=== PATIENT | female | born 1990 | race Caucasian/White ===

== ENCOUNTER 2017-02-09 04:00 | Observation (INO) ==
--- OUTSIDE RECORDS SUMMARY | 2017-02-09 04:23 | External Medical Summary | Continuity of Care Document ---
:1990 Author Organization [facility] Address [address] [place], [place] [id number] Phone Care Team Providers Name Role Phone Antwan Mustafa MD Unavailable Unavailable Allergies, Adverse Reactions, Alerts Substance Reaction Severity Status No Known Drug Allergies Unknown Active Medications Medication Instructions Dosage Effective Dates Status Comments (start - stop) ibuprofen 800 mg Tab take 1 tablet (800MG) - Active by ORAL route every 8 hrs PRN cramping or pain. 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 Procedures Procedure Date Preventive checkup, est,18-39 yrs Assay thyroid stimulating hormone Venpnctr fngr/heel/ear stick routne Results Test Name Date and Time Measure Units Reference Range Abnormal Flag Comments Panel Description: TSH W/REFLEX TO FT4 TSH W/REFLEX TO 14:30:00 1.26 mIU/L N Reference Range FT4 > or=20 Years 0.40-4.50 Ranges First trimester 0.26-2.66 Second trimester 0.55-2.73 Third trimester 0.43-2.91REPORT COMMENT:FASTING:NOTest performed at [facility] [facility] [id number] [place] [id number]: SCOTT KENNEDY DO,MPH Advance Directives Directive Yes / No Effective Date File Name Unknown Encounters Encounter Practice Location Reason(s) Diagnoses Date Provider Care Team Description For Visit [facility] [place] Nonscarring hair Feb- Kisha Referring checkup, In Womens established loss, 8-201 Qi. Provider: est,18-39 Health PA, patient well unspecifiedEncntr 6 [address] y[address] woman exam for litigation paralegal exam Nelson Pappas, 1522, (chief (general) Center [address] [place] [address], complaint) (routine) w , [facility], abnormal findings [address], [place] , [place], [facility] 120, [place], tel:[phone], , [place]. [id number]. tel: tel:[phone] Rebeka Steinberg Kisha Referring In Womens 6-201 Qi. Provider: [facility], 4 700 [facility] Medical Gaurav Pappas, 1522, Center [facility] [address] Johanna, [facility], 120, [place] [id number], [place] [facility] 120, [place], [place], tel:[phone], , [place]. [id number]. tel: tel:[phone] Rebeka Steinberg Mar- Narendra In Womens 2-200 Ban. [facility], [address], [place] [address] Johanna, [facility], 120, [id number], [place], [facility], tel:[phone] , [place]. tel: [phone] Rebeka Steinberg Gaurav In Womens 2-200 Key. [facility], [address], [place] [address] Johanna, [facility], 120, [id number], [place], [facility], tel:[phone] , . tel:[phone] Family History Family Member Diagnosis Age At Onset Father Depression Mother Hypertension Father Mental Disorder Mother Depression Immunizations Vaccine Date Status Comments Unknown Payers Payer name Insurance type Covered libertarian ID Authorization(s) BC[facility] [id number] BCBS Out Of State Social History Type Description Quantity Date Captured Alcohol Use Details Caffeine Use Details coffee 1cup per day Tobacco Use Status Moderate cigarette smoker (10-19 cigs/day) Smoking Status Current every day smoker Smoking Tobacco Use Cigarette: No Details Available Cigarette: 0.5 per day Details Vital Signs Date / Height Weight BMI Pulse Blood Temperature Respiratory Body Head BMI Time: Rate Pressure Rate Surface Circumference percentile Area 63.75 152.20 26.3 75 127/86 / in lbs 3 /min mm[Hg] 13:40: kg/m 00 eter (2) Chief Complaint And Reason For Visit Most recent encounter only, dated '03/13/2016 14:15'. an established patient well woman exam (chief complaint). Description: Periods regular. Less cramping since she started using Diva cups. Condoms for BC. Not interested in other BC. Got with 1st child with Paragard. Does have occ LLQ pain- usually sharp. Can last just a few seconds or off and on all day. Has had for several years. Had normal sono in 2013. Doesn't like to take Ibuprofen or Tylenol. Bowels WNL. Occ feels bloated. Does feel like her hair is thinning. Feels vaginal discharge is NL- just changes with time of cycle. Smoker 5-10 cigarettes a day. Interested in quitting sometime in the future. Still deals with anxiety but overall doing ok. Reason For Referral Reason For Referral Unknown Plan Of Care Date Type Action Status Goal Tobacco cessation counseling completed Goal Lifestyle education regarding diet completed Goal Tobacco cessation counseling completed Future Order: Lab Order Pap Smear With HPV Reflex If ASCUS Ordered (WPMPap1) Future Order: Lab Order Pap Smear With HPV Reflex If ASCUS Ordered (WPMPap1) Future Order: Lab Order Pap Smear With HPV Reflex If ASCUS Ordered (WPMPap1) Future Order: Lab Order HIV 1/2 Abs () Ordered Future Order: Lab Order OBSTETRIC PANEL () Ordered Date Type Problem Goal Intervention Status Start Date Unknown. History Of Present Illness Encounter Date Complaint History Of Present Illness an established patient well woman Periods regular. Less cramping exam since she started using Diva cups. Condoms for BC. Not interested in other BC. Got with 1st child with Paragard. Does have occ LLQ pain- usually sharp. Can last just a few seconds or off and on all day. Has had for several years. Had normal sono in 2012. Doesn't like to take Ibuprofen or Tylenol. Bowels WNL. Occ feels bloated. Does feel like her hair is thinning. Feels vaginal discharge is NL- just changes with time of cycle. Smoker 5-10 cigarettes a day. Interested in quitting sometime in the future. Still deals with anxiety but overall doing ok. Functional Status Encounter Date Functional Assessment Cognitive Assessment Unknown Medications Administered Medication Instructions Dosage Effective Dates (start - stop) Status Comments Drug Treatment Unknown Instructions Date Instruction Additional Information Giving encouragement to exercise Related to Body mass index 26.0- 26.9 Lifestyle education regarding diet Related to Body mass index 26.0-26.9
--- OUTSIDE RECORDS SUMMARY | 2017-02-09 04:23 | External Medical Summary | Continuity of Care Document ---
:1990 Author Organization [facility] Allergies Active Description Code Type Severity Reaction Onset Reported/ Identified Relationship Clinical to Patient Status Yes No Known F0019 Drug Unknown N/A 10/30/2014 Drug 56252 Aller Allergies gy Medications Problems Date Dx Attending Type Code Diagnosis Diagnosed By Coded 10/30/2014 Narendra DESAI, Ot 626.4 Ban L 11/18/2014 Jose Ot 462 Sandra Wolfe HEAD ATHLETIC TRAINER 11/18/2015 Jose Ot 462 ACUTE PHARYNGITIS Sandra Aiden HEAD ATHLETIC TRAINER 01/11/2016 Narendra DESAI, Ot 626.4 IRREGULAR Ban L MENSTRUATION 01/11/2016 Jose Ot 462 ACUTE PHARYNGITIS Sandra Aiden HEAD ATHLETIC TRAINER 02/04/2016 Narendra DESAI, Ot 626.4 IRREGULAR Abn L MENSTRUATION 02/04/2016 Jose Ot 462 ACUTE PHARYNGITIS Banner Aiden HEAD ATHLETIC TRAINER Procedures Results Encounters ACCT No. Visit Discharge Status Pt. Type Provider Facility Loc./Unit Complaint Date/Time [id number] 10/30/2014 10/30/2014 C[place] Out[place]oll[place] [facility] [id number] 18:01:00 23:59:59 , [facility] HEAD ATHLETIC TRAINER [id number] 12/10/2012 12/10/2012 CLS Outpatient Narendra Mccollum LAB 8172 08:58:00 23:59:59 , [facility] [id number] 03/14/2016 03/14/2016 CLS Outpatient Kisha, 08:14:00 23:59:59 Qi [id number] 03/13/2016 03/13/2016 CLS Outpatient Kisha, 14:15:00 23:59:59 Qi
--- NOTE | 2017-02-09 04:37 | Emergency Department Report ---
Lower Extremity Injury HPI - General Chief Complaint: Extremity Injury, Lower Stated Complaint: Left ankle inj Time Seen by Provider: 02/09/17 04:13 Source: patient Mode of arrival: ambulatory Limitations: no limitations - History of Present Illness HPI Narrative: 26yo woman presents to the ER for evaluation of left ankle pain. Pt was jogging back to her house from her car, across her yard, when she stepped in a hole. Pt has a h/o bad ankles, but this felt different. Pt tried to make it through the afternoon/night, but could not 2/2 pain. Injury occurred at 0130; pt last ate at 2100; last drank some wine at 0000. complaint: ankle injury Onset (ago): hour(s) (12+) Injury: Left: ankle Type of Injury: unknown Place: home Severity: severe Severity scale (1-10): 8 Relieving factors: cold therapy, immobilization Exacerbating factors: weight bearing, movement, palpation Context: walking Associated symptoms: snap/pop sensation, swelling, able to partially bear weight Other symptoms: none Treatments prior to arrival: cold therapy, NSAIDS - Related Data Home Medications Medication Instructions Recorded Confirmed Duloxetine [Cymbalta] 30 mg PO DAILY #0 03/19/08 Loratadine (Claritin) 10 mg PO DAILY #0 03/19/08 Vits W-Ca,Fe,Fa(<1MG) 1 tab PO DAILY #0 03/19/08 ( Vitamins) Allergies Allergy/AdvReac Type Severity Reaction Status Date / Time No Known Drug Allergies Allergy Unknown Verified 02/09/17 05:34 Review of Systems All systems: reviewed and negative except as stated Musculoskeletal: Reports: as per HPI [facility] History Updates: Depression. Allergic rhinitis Physical Exam - Limitations Limitations: no limitations - General General appearance: alert, in no apparent distress, obese - Normal Exams: Head:: Normocephalic without trauma Eyes:: Pupils are PERRLA w/ EOMI, No scleral icterus, irritation, or foreign bodies noted ENMT:: No facial trauma, nasal exudates, pharyngeal erythema, or exudates are noted Neck:: Full range of motion, without adenopathy, JVD, bruits or thyromegaly Lymphatic:: No lymphadenopathy Neurological:: Patient is alert, and oriented Psychiatric:: Patient exhibits, appropriate attention - Expanded Lower Extremity Exam Ankle exam: Present: tenderness, swelling, abrasion, ecchymosis, deformity, crepitus, tenderness over talofibular lig, anterior draw sign. Absent: normal inspection, full ROM, laceration, dislocation, erythema - Skin Skin exam: Present: warm, dry, intact, other (Ecchymosis over left ankle). Absent: rash Course - Consultations Consultation #1: Ortho: Recommends splinting ankle. If unable, can come in to do so. Will contact Dr. Avery to find out if he wants to surgerize now or later. Time: 04:37 Vital Signs Temperature 98.0 F 02/09/17 04:00 Pulse Rate 112 H 02/09/17 04:00 Respiratory Rate 18 02/09/17 04:00 Blood Pressure 139/95 H 02/09/17 04:00 Pulse Oximetry 97 02/09/17 04:00 Temperature 98.0 F 02/09/17 04:00 Pulse Rate 112 H 02/09/17 04:00 Respiratory Rate 18 02/09/17 04:00 Blood Pressure 139/95 H 02/09/17 04:00 Pulse Oximetry 97 02/09/17 04:00 Procedures - Orthopedic Fracture Reduction Fracture #1 Time Out Performed: Yes Side: left Fracture Reduction Location: tibia, fibula, other (talus) Analgesia: other (IM morphine) Technique: traction/counter-traction Post Reduction X-rays Demonstrate: anatomical reduction Post-reduction neuro exam: intact Post-reduction vascular exam: intact Splint Applied: Yes Patient Tolerated Procedure: well - Orthopedic Splinting/Casting Injury #1 Side: left Lower Extremity Injury Location: ankle Lower Extremity Immobilizer: posterior splint, stirrup splint Extremity Injury, Lower - Differential Diagnosis Likely: ankle sprain and strain, acute internal derangement of knee, fracture of toe, ankle fracture - Radiology Data Attestation: I reviewed the patient's radiology results. Left ankle: Comminuted distal fibular fx. Possible posterior, distal tibial fx with poseterior talus on tibial displacement. Left knee: No acute osseus abnormality. Disposition Clinical Impression: Tibia/fibula fracture Qualifiers: Encounter type: initial encounter Fracture type: closed Laterality: left Qualified Code(s): S82.202A - Unspecified fracture of shaft of left tibia, initial encounter for closed fracture; S82.402A - Unspecified fracture of shaft of left fibula, initial encounter for closed fracture; S82.402A - Unspecified fracture of shaft of left fibula, initial encounter for closed fracture Disposition: 02 To OBS [facility] Prescriptions: No Action Vits W-Ca,Fe,Fa(<1MG) ( Vitamins) 1 tab PO DAILY #0 Loratadine (Claritin) 10 mg PO DAILY #0 Duloxetine [Cymbalta] 30 mg PO DAILY #0 Referrals: Ban Mackey MD [Family Provider] - Time of Disposition: 05:36 - Seen By: physician
[2017-02-09] MEDS ORDERED: MORPHINE SULFATE 4mg INJECTION IM ONE ×2 (05:01→05:29)
[2017-02-09] MEDS ORDERED: ONDANSETRON ODT 4 MG TABLET PO ONE (05:01)
[2017-02-09] MEDS ORDERED: MORPHINE SULFATE 4mg INJECTION IVP PRN (05:30)
[2017-02-09] MEDS ORDERED: SALINE FLUSH 10ml SYRINGE IVF PRN (05:30)
[2017-02-09] MEDS: NS 1,000 ML IV SCH ×2 (05:38→13:56)
[2017-02-09 07:49] VITALS: BMI 26.4
--- NOTE | 2017-02-09 08:12 | XRay Report ---
EXAM: XR knee LT 2V DATE: 02/09/2017 4:39 AM ENCOUNTER: Initial INDICATION: Fibula fx COMPARISON: None available. TECHNIQUE: 3 views of the knee were obtained. FINDINGS: Bony mineralization is normal. The osseous structures appear intact with no acute fracture identified. The joint spaces are maintained. No significant joint effusion. No focal radiographically apparent soft tissue swelling seen. No radiopaque foreign body. IMPRESSION: No acute fracture or malalignment. .
--- NOTE | 2017-02-09 08:16 | XRay Report ---
EXAM: XR ankle LT min 3V DATE: 02/09/2017 4:13 AM ENCOUNTER: Initial INDICATION: Ankle pain COMPARISON: None available. TECHNIQUE: 3 views of the ankle were obtained FINDINGS: Bony mineralization is normal. There is an acute nondisplaced oblique mildly comminuted fracture of the distal fibula, a nondisplaced fracture of the medial malleolus, and a nondisplaced fracture of the posterior malleolus. No osteochondral lesions of the tibial plafond or talar dome identified. There is dorsal subluxation of the tibiotalar articulation. The medial and lateral clear spaces appear within normal limits. No focal radiographically apparent soft tissue swelling seen. No radiopaque foreign body. IMPRESSION: Acute trimalleolar fracture of the left ankle, with mild comminution of the distal fibular fracture and dorsal subluxation of the tibiotalar articulation. .
[2017-02-09] MEDS ORDERED: NOZIN NASAL SWAB NAS ONE (08:35)
--- NOTE | 2017-02-09 08:44 | Orthopedic History & Physical ---
Orthopedic HPI - HPI Comments Theresa is a 26 year old female who stepped in a hole last night in her yard and suffered a trimalleolar left ankle fracture. She scooted herself to the front door to get help. Her [place] [facility] [place]-rays revealed the preiously mentioned fracture. She has otherwise been healthy. She denies hitting her head. She last ate at 8:00 PM yesterday and last drank at midnight. She denies pain anywhere except the ankle. [facility] Patient Stated Medical History Migraine Yes Asthma Yes: ALLERGIES Pneumonia Yes Other GI Yes: IBS Other Musculoskeletal Yes: FINGER , ANKLE Depression Yes Other Behavioral Health Yes: PANIC Medical History Updates: Depression. Allergic rhinitis - Social History Smoking status: Current every day smoker Housing: house Review of Systems - Constitutional Constitutional: Absent: chills, headache(s) - EENT Eyes: Absent: blurry vision, pain Ears, nose, mouth, throat: Absent: vertigo - Cardiovascular Cardiovascular: Absent: chest pain Vascular: Absent: pallor of an extermity - Respiratory Respiratory: Absent: cough - Gastrointestinal Gastrointestinal: Absent: diarrhea, dysphagia - Genitourinary Genitourinary General: Absent: fever(s) - Musculoskeletal Musculoskeletal: Present: as per HPI - Integumentary/Breasts Integumentary: Present: wounds (excoriation medial left ankle). Absent: erythema - Neurological Neurological: Absent: headache(s), numbness, paresthesias - Endocrine Endocrine: Absent: cold intolerance - Hematologic/Lymphatic Hematologic/Lymphatic: Absent: easy bleeding Medications Home Medications Medication Instructions Recorded Confirmed Type ALPRAZolam [Xanax] 0.125 - 0.25 mg PO 2XDPRN PRN 02/09/17 02/09/17 History Loratadine [Claritin] 10 mg PO DAILY PRN 02/09/17 02/09/17 History Ondansetron [Zofran Odt] 4 mg PO Q6HR 02/09/17 02/09/17 History Quetiapine [Seroquel] 12.5 mg PO DAILY 02/09/17 02/09/17 History Quetiapine [Seroquel] 25 mg PO HS 02/09/17 02/09/17 History Sertraline [Zoloft] 25 mg PO DAILY 02/09/17 02/09/17 History Sertraline [Zoloft] 100 mg PO DAILY 02/09/17 02/09/17 History Allergies Allergy/AdvReac Type Severity Reaction Status Date / Time No Known Drug Allergies Allergy Unknown Verified 02/09/17 05:34 Orthopedic Exam Vital signs: Temperature 96.7 F L 02/09/17 07:47 Pulse Rate 100 02/09/17 07:47 Respiratory Rate 18 02/09/17 07:47 Blood Pressure 134/84 02/09/17 07:47 Pulse Oximetry 96 02/09/17 07:47 - Constitutional General Appearance: Present: alert, orientated x3, mild distress - Respiratory Exam Present: non-labored - Cardiovascular Exam Present: pedal pulses intact Capillary Refill: < 2-3 Seconds - Abdominal Exam Absent: tenderness - Extremities Exam Present: pulses intact, joint swelling. Absent: calf tenderness Comments: Left ankle with deformity, no skin tenting, decreased ROM secondary to pain. Pulse 2 plus, cap refill 2 seconds. Neuro intact to light touch. Wrinkle test shows she can wrinkle. excoriation noted along medial malleolus, not full thickness. - Integumentary Exam Present: pink, warm, dry - Lymphatic Lymphatic: Absent: lymphedema - Neurological Exam Present: intact to light touch - Psychiatric Exam Present: alert, oriented, normal affect - Diagnostic results Ankle/Foot x-ray: image reviewed (trimalleolar ankle fracture) Orthopedic Assessment and Plan (1) Trimalleolar fracture of left ankle Status: Acute Assessment and Plan: NPO for surgery today strict ice elevation consent signed Preop antibiotics ordered Risks and benefits of the recommended procedure were discussed with the patient and/or patient's legal loss control representative. They include: infection, nerve damage, artery damage, stroke, CO, PE, DVT, ileus, continued pain, or risk that the injury may not heal despite surgery. There are also medical risks of anesthesia. Risks are not limited to the above mentioned alone. Hospital Course Summary Disclaimer: The visit summary below is not to be considered part of the above Progress Note.
--- NOTE | 2017-02-09 08:47 | XRay Report ---
EXAM: XR ankle LT min 3V DATE: 02/09/2017 5:36 AM ENCOUNTER: Subsequent INDICATION: Post-reduction COMPARISON: None available. TECHNIQUE: 3 views of the ankle were obtained FINDINGS: Bony mineralization is normal. Interval closed reduction and splinting of the previously noted trimalleolar fracture of the left ankle with resulting improved now anatomic alignment of the tibiotalar articulation. No osteochondral lesions of the tibial plafond or talar dome identified. No focal radiographically apparent soft tissue swelling seen. IMPRESSION: Interval closed reduction and splinting of the previously noted trimalleolar fracture of the left ankle with resulting improved now anatomic alignment of the tibiotalar articulation. .
[2017-02-09] MEDS ORDERED: LR 1,000 ML IV SCH (09:00)
[2017-02-09] MEDS ORDERED: CEFAZOLIN 1 G INJECTION IVP ONE (09:23)
[2017-02-09] MEDS ORDERED: MIDAZOLAM 2mg/2ml INJECTION IVP ONE (09:51)
--- NOTE | 2017-02-09 10:24 | Anesthesia Preoperative Report ---
Anesthesia Preoperative Record - Date and Time Date: 02/09/17 Preoperative Diagnosis: Tib/Fib fx Proposed Procedure: Left Ankle ORIF NPO Since Date: 02/08/17 NPO Since Time: 02:30 Allergies/Adverse Reactions: Allergies Allergy/AdvReac Type Severity Reaction Status Date / Time No Known Drug Allergies Allergy Unknown Verified 02/09/17 05:34 - Vital Signs Vital Signs: Temperature 96.7 F L 02/09/17 07:47 Pulse Rate 86 02/09/17 09:24 Respiratory Rate 18 02/09/17 07:47 Blood Pressure 134/84 02/09/17 07:47 Pulse Oximetry 96 02/09/17 07:47 Height and Weight: Height 5 ft 4 in Weight 70 kg Body Mass Index 26.4 - Medications Inpatient Medications: Current Medications Sodium Chloride (Normal Saline) 1,000 mls @ 125 mls/hr IV .Q8H KIMBERLY Last Infusion: 02/09/17 07:40 Dose: 125 mls/hr Lactated Ringer's (Lactated Ringers) 1,000 mls @ 100 mls/hr IV .Q10H KIMBERLY Last Admin: 02/09/17 09:35 Dose: 100 mls/hr Midazolam HCl (Versed) 2 mg IVP O ONE Stop: 02/09/17 09:52 Morphine Sulfate (Morphine Sulfate Inj) 4 mg IVP Q4H PRN PRN Reason: Pain Last Admin: 02/09/17 07:26 Dose: 4 mg Sodium Chloride (Iv Flush) 10 - 80 ml IVF PRN PRN PRN Reason: Flushing Last Admin: 02/09/17 05:35 Dose: 10 ml Home Medications: Home Medications Medication Instructions Recorded Confirmed Type ALPRAZolam [Xanax] 0.125 - 0.25 mg PO 2XDPRN PRN 02/09/17 02/09/17 History Loratadine [Claritin] 10 mg PO DAILY PRN 02/09/17 02/09/17 History Ondansetron [Zofran Odt] 4 mg PO Q6HR 02/09/17 02/09/17 History Quetiapine [Seroquel] 12.5 mg PO DAILY 02/09/17 02/09/17 History Quetiapine [Seroquel] 25 mg PO HS 02/09/17 02/09/17 History Sertraline [Zoloft] 25 mg PO DAILY 02/09/17 02/09/17 History Sertraline [Zoloft] 100 mg PO DAILY 02/09/17 02/09/17 History Is Patient on Beta Louis?: No - Medical History Respiratory: Reports: Asthma DENIES: Bronchitis, Chronic Obstructive Pulmonary Disease (COPD), Dyspnea, Orthopnea, Pulmonary Embolism, Pneumonia, Upper Respiratory Infection, Pulmonary Edema, Sleep Apnea, Tuberculosis, Other Cardiovascular: DENIES: Abnormal EKG, Angina, Arrhythmia, Congestive Heart Failure, Coronary Artery Disease, Heart Murmur, Hypertension, Hypotension, High Cholesterol, Myocardial Infarction, Rheumatic Fever, Valvular Heart Disease, Other Gastrointestional: DENIES: Obstructive Bowel, Hepatitis, Cirrhosis, Nausea or Vomiting Present, Gastroesophageal Reflux Disease, Gastrointestinal Bleeding, Hiatal Hernia, Ulcer , Morbid Obesity, Other Neuro/Musculoskeletal: Denies: HX.MS.OSAR, Back Problems, Cerebrovascular Accident, Depression, Headaches, Loss of Consciousness, Muscle Weakness, Neuromuscular Disorder, Paralysis, Paresthesia, Syncope, Seizures, Other Renal/Endocrine: DENIES: Diabetes Mellitus Type 1, Diabetes Mellitus Type 2, Renal Failure, Dialysis, Thyroid Disease, Weight Loss, Weight Gain, Other Other History: DENIES: Anesthesia Reactions, Now, Blood Transfusions, Chemotherapy , Cancer, Hemophilia, Malignant Hyperthermia, Sickle Cell Disease, Other - Surgical History HEENT Surgeries: Reports: Eye Surgery (AGE 2 AND 8), Oral Surgery (WISDOM TEETH) Anesthesia Reactions: None Hx Family Anesthesia Reaction: No History of Motion Sickness: Yes - Social History Smoking Status: Current every day smoker Packs per day: 1 Pack-years: 10 Hx Chewing Tobacco Use: No Second Hand Exposure: Yes Substance Use Type: does not use Alcohol Intake: current Alcohol Intake Frequency: a few times a week - Pertinent Findings EKG: Sinus Rhythm - Physical Exam Respiratory Exam: Present: lungs clear, bilateral breath sounds equal Cardiovascular Exam: Present: regular rate and rhythm, no murmur - Airway Assessment Mallampati Score: I TMD: 3 Fingerbreadths Overall Assessment: no airway concerns - ASA ASA Score: 2, E - Plan Anesthesia: General TIVA Peripheral Nerve Block: Popliteal-Left, Saphenous-Left - Discussion Discussion: Discussed risks/options/alternatives of anesthesia and questions answered. Patient consents. Nursing pain assessment noted. Present for Discussion: spouse Attestation Statement: Prior to the delivery of any anesthetic medication, I examined the patient, developed the plan, obtained the patient's consent and discussed the risk and benefits of the procedure with the patient/guardian. - Additional Information Seen by Anesthesia: Yes
[2017-02-09] MEDS: FentaNYL 100 MCG/2 ML INJECTION IVP PRN ×2 (10:32→10:42)
--- NOTE | 2017-02-09 11:35 | Anesthesia Procedure Note ---
Peripheral Nerve Blockade - Procedure Physician: Akhil Avery MD Date: 02/09/17 Surgical Procedure: ORIF Left Ankle Discussion: Discussed risks/options/alternatives of anesthesia and questions answered. Patient consents. Nursing pain assessment noted. Block Start: 10:36 Block Stop: 10:42 Blocked Employed: Adductor Canal, Popliteal Indication: Post-Operative Pain Approach: Left Side Confirmed Position: RLD Patient: Consent, Risks/Benefits Discussed IV Sedation: Yes Midazolam (mg): 2 Fentanyl (mg): 100 Decadron (mg): 8 Initial Vital Signs: Temperature 98.0 F 02/09/17 04:00 Temperature Source Oral 02/09/17 04:00 Sepsis Recent Fever Within 48 Hours No 02/09/17 04:00 Sepsis Suspicion of Infection No 02/09/17 04:00 Sepsis New/Unexplained Change in Mental Status No 02/09/17 04:00 Sepsis Score/Level No Definite Risk 02/09/17 04:00 Sepsis Action Taken by Nursing No Action 02/09/17 04:00 Pulse Rate 112 H 02/09/17 04:00 Pulse Rhythm 02/09/17 04:00 Pulse Strength Normal 02/09/17 04:00 Respiratory Rate 18 02/09/17 04:00 Respiratory Effort Non-Labored 02/09/17 04:00 Respiratory Depth Normal 02/09/17 04:00 Respiratory Pattern 02/09/17 04:00 Blood Pressure 139/95 H 02/09/17 04:00 Blood Pressure Mean 109 02/09/17 04:00 Blood Pressure Position Sitting 02/09/17 04:00 Pulse Oximetry 97 02/09/17 04:00 Oxygen Delivery Method 02/09/17 04:00 Post Vital Signs: Temperature 96.7 F L 02/09/17 07:47 Pulse Rate 76 02/09/17 10:55 Respiratory Rate 12 02/09/17 10:55 Blood Pressure 125/72 02/09/17 10:55 Pulse Oximetry 93 02/09/17 10:55 Initial Pain Pain Score: 10 Post Block Pain Score: 0 Prep: Chlorhexadine/ETOH Ultrasound Used?: Yes - Injectate Was Epi 1:200,000 Used?: No Injection: Injection made incrementally with constant monitoring and aspiration every ml
[2017-02-09] MEDS ORDERED: PROPOFOL 40 ML ONE ×2 (11:57→11:58)
--- NOTE | 2017-02-09 12:37 | Remote Fluorsocopy Report ---
Indication: ORIF L ANKLE Procedure: RF ankle LT 2 view: Encounter: Subsequent Comparison: Prior ankle radiographs of the same day Technique: Four intraoperative fluoroscopic spot images are submitted for review. 36.2 seconds of fluoroscopy time was provided. Findings/ Impression: The submitted intraoperative fluoroscopic spot images demonstrate postoperative changes of ORIF of the previously noted fractures of the left ankle with placement of a lateral fibular sideplate, multiple transfixing cortical screws, and two cannulated cortical lag screws through the medial malleolus. Alignment appears anatomic. Please refer to the operative note for further details. .
--- NOTE | 2017-02-09 12:40 | Post Procedure Note ---
Date of Procedure: 02/09/17 Orthopedic Surgeon: Bennie Orthopedic Assisting Surgeon: Rene Garcia Anesthesia: General TIVA, Regional Block Procedure: Procedures Operation Date: 02/09/17 11:00 Actual Procedures p Open Reduction Internal Fixation Ankle(Left) - Akhil Avery MD Condition: Stable Disposition: PACU
--- NOTE | 2017-02-09 12:44 | Discharge Instructions ---
Discharge Plan - Med Rec/Dispo Referrals/Follow Up: Akhil Avery MD [Physician] - 2 Weeks (please call [phone] to arrange a 2 week follow up.) [facility] Instructions: [facility] Bennie General Instructions Additional Instructions: NON weight bearing on left leg Prescriptions: New Hydrocodone/APAP 7.5/325 [[place] 7.5/325] 1 - 2 tab PO Q4H #60 tab Aspirin Chewable [ASA] 81 mg PO BID #84 tab.chew Continue Sertraline [Zoloft] 25 mg PO DAILY Ondansetron [Zofran Odt] 4 mg PO Q6HR Quetiapine [Seroquel] 12.5 mg PO DAILY Quetiapine [Seroquel] 25 mg PO HS Loratadine [Claritin] 10 mg PO DAILY PRN PRN Reason: Allergy Symptoms ALPRAZolam [Xanax] 0.125 - 0.25 mg PO 2XDPRN PRN PRN Reason: Anxiety Sertraline [Zoloft] 100 mg PO DAILY - Disposition 01 Discharged Home, Self-Care
--- NOTE | 2017-02-09 12:57 | Anesthesia Postoperative Note ---
- Date and Time Date: 02/09/17 Time: 12:56 - Status Patient Participated in Evaluation: Patient Participated in Person Vital Signs: Temperature 99.5 F 02/09/17 12:38 Pulse Rate 72 02/09/17 12:50 Respiratory Rate 17 02/09/17 12:50 Blood Pressure 114/65 02/09/17 12:50 Pulse Oximetry 94 02/09/17 12:50 Respiratory Function: Airway Patent, Regular Respirations Cardiovascular Function: Regular Pulse Mental Status: Alert and Oriented Pain Intensity: 0 Hydration: IV Infusing Complications During Recover: None Apparent - Follow-Up Instructions Instructions: Per Surgeon
[2017-02-09 13:08] VITALS: RESP 16
[2017-02-09] MEDS ORDERED: ONDANSETRON 4 MG/2 ML INJECTION IVP PRN (13:30)
[2017-02-09] MEDS ORDERED: HYDROCODONE/APAP 7.5 MG/325 MG TABLET PO PRN (13:30)
[2017-02-09 14:17] VITALS: TEMP 97.4
[2017-02-09 14:19] VITALS: O2SAT 96
[2017-02-09 15:40] VITALS: BP 130/81; PULSE 74
--- NOTE | 2017-02-09 18:31 | Operative Note ---
DATE OF SURGERY 02/09/2017 PREOPERATIVE DIAGNOSIS Left trimalleolar ankle fracture. POSTOPERATIVE DIAGNOSIS Left trimalleolar ankle fracture. PROCEDURE Open reduction internal fixation of left trimalleolar ankle fracture. SURGEON Shilpi Avery MD [employer] WORKING SUPERVISOR Rene Garcia PA-C COMPLICATIONS None. EBL/FLUIDS Please see anesthetic records. ANESTHESIA Popliteal and saphenous nerve blocks with TIVA. DESCRIPTION OF PROCEDURE Mrs. Alcantar and her left ankle were identified and marked in the preoperative holding area. She was brought back to the operating suite and placed supine on the operating table. She was placed under general anesthesia. Popliteal and saphenous nerve blocks were placed in the preoperative holding area. The left lower extremity was prepped and draped in my normal sterile fashion. Timeout was performed. Fluoroscopic imaging was used throughout the case. A lateral approach to the fibula was performed sharply, using blunt dissection down to release the peroneal fascia. The fracture was quickly identified. It was an oblique fracture pattern very amenable to lag screw fixation. It was reduced under direct visualization and held with a bone clamp. A 2.5 mm screw was then placed in the lag fashion from anterior to posterior. It achieved a good bite and held the fracture well reduced. I then placed a neutralization plate. This was a locking plate with eight holes. The first screw was placed nonlocking. The four distal screws were placed locking. Two more locking screws were placed proximally and then one last nonlocking screw was placed proximally. All achieved a good bite. There was a small butterfly fragment proximal to the main fragment. This was not significant and not large enough to place any fixation. I moved to the medial side. She did have a superficial abrasion in this area so my incision was more inferior than normal. I was still able to get good access to the fracture site. There was some periosteum opposed - it was removed. The fracture was reduced under direct visualization with a bone clamp and I placed two 46-mm partially threaded cancellous screws over guide pens. They both achieved a good bite. Multiple fluoroscopic images were taken and ensured good hardware placement and fracture reduction and the mortise was very stable with external rotation stress. Both wounds were thoroughly irrigated before being closed in layers. Sterile dressing was placed followed by a well-padded, well- molded posterior slab and stirrup type splint. The tourniquet was let down. The drapes were removed. She was allowed to awaken from general anesthesia and taken to the recovery room under the care of Anesthesia. She tolerated the procedure well. There were no complications. HAKEEM
== END 2017-02-09 16:10 | disposition home or self-care (01) ==
LOC: ED 04:00 → INTOOBSV 06:34 → SRG 06:34
PROVIDERS: ADMIT Orthopaedic Surgery; ATTEND Orthopaedic Surgery